=== PATIENT | male | born 1985 | race Caucasian/White ===

== ENCOUNTER 2018-01-18 09:12 | Outpatient (CLI) | payer OTHER ==
[~2018-01-18 09:12] MED LIST: FLEXERIL 10 MG PO; FLONASE16 GM NS; GILTUSS TR TAB1 EACH PO; ORPH100T PO; ULTRACET PO; ZYRTEC10 MG PO
== END 2018-01-18 09:19 | disposition home or self-care (01) ==
LOC: LAB 09:12 → ADM 15:30
DX: B01.9 Varicella without complication (principal); Z11.9 Encounter for screening for infectious and parasitic diseases, unspecified

== ENCOUNTER 2018-08-23 17:26 | Outpatient (CLI) | payer OTHER | END 2018-08-23 17:30 | disposition home or self-care (01) | LOC: LAB 17:26 | DX: J11.1 Influenza due to unidentified influenza virus with other respiratory manifestations (principal); J06.9 Acute upper respiratory infection, unspecified ==

== ENCOUNTER 2018-11-30 12:12 | Outpatient (CLI) | payer OTHER | END 2018-11-30 12:43 | disposition home or self-care (01) | LOC: LAB 12:12 | DX: J11.1 Influenza due to unidentified influenza virus with other respiratory manifestations (principal); A49.3 Mycoplasma infection, unspecified site ==

== ENCOUNTER 2018-12-10 11:06 | Outpatient (CLI) | payer OTHER | END 2018-12-10 11:16 | disposition home or self-care (01) | LOC: LAB 11:06 | DX: J31.2 Chronic pharyngitis (principal) ==

== ENCOUNTER 2019-07-22 14:13 | Outpatient (CLI) | payer OTHER | END 2019-07-22 14:32 | disposition home or self-care (01) | LOC: RAD 14:13 | DX: M79.672 Pain in left foot (principal) ==